=== PATIENT | female | born 1980 | race Two or more races ===

== ENCOUNTER 2024-03-13 15:37 | Inpatient (IN) | payer OTHER ==
[~2024-03-13] VITALS: Ht 157.5 cm; Wt 67.6 kg
[2024-03-13] MEDS ORDERED: ONDANSETRON HCL/PF 4 MG/2 ML VIAL ONE (15:49)
[2024-03-13] MEDS: ONDANSETRON HCL/PF 4 MG/2 ML VIAL IVP ONE (16:00)
[2024-03-13] MEDS: IV NS 0.9% 1,000 ML BAG IV ONE (16:00)
[2024-03-13] MEDS: PANTOPRAZOLE 80 MG in IV NS 0.9% 500 ML IV ONE (16:10)
[2024-03-13 16:28] LABS: BASOPHILS # (AUTO) 0.1 K/uL (0.0-0.2); BASOPHILS % (AUTO) 0.9 % (0.0-2.0); EOSINOPHILS # (AUTO) 0.1 K/uL (0.0-0.7); EOSINOPHILS % (AUTO) 1.6 % (0.0-6.0); LYMPHOCYTES # (AUTO) 1.5 K/uL (0.8-4.8); LYMPHOCYTES % (AUTO) 19.3 % (20.0-44.0); MEAN CORPUSCULAR HEMOGLOBIN 24 PG (26.0-33.0); MEAN CORPUSCULAR HGB CONC 29 g/dl (31.0-36.0); MEAN CORPUSCULAR VOLUME 84 fL (82-100); MONOCYTES # (AUTO) 0.6 K/uL (0.1-1.30); MONOCYTES % (AUTO) 7.1 % (2.0-12.0); NEUTROPHILS # (AUTO) 5.6 K/uL (1.8-8.9); NEUTROPHILS % (AUTO) 71.1 % (43.0-81.0); PLATELET COUNT (AUTO) 606 K/uL (150-450); RED CELL DISTRIBUTION WIDTH 19.5 % (11.5-15.0); WHITE BLOOD COUNT (AUTO) 7.9 K/uL (4.3-11.0)
[2024-03-13 16:30] LABS: RED BLOOD CELL COUNT(AUTO) 1.86 MIL/uL (4.0-5.2)
[2024-03-13 16:31] LABS: HEMOGLOBIN 4.4 g/dL (11.5-14.8)
[2024-03-13 16:32] LABS: HEMATOCRIT 16 % (33-45)
[2024-03-13 16:39] LABS: INR 0.97 (0.91-1.10); PROTHROMBIN TIME 10.3 SECS (9.2-11.1)
[2024-03-13 16:47] LABS: CALCIUM, SERUM 7.9 mg/dL (8.5-10.1); CARBON DIOXIDE 27 mmol/L (21-32); CHLORIDE 106 mmol/L (98-107); CREATININE 0.7 mg/dL (0.6-1.3); GLUCOSE 137 mg/dL (74-106); POTASSIUM 3.7 mmol/L (3.5-5.1); SODIUM SERUM 140 mmol/L (136-145); UREA NITROGEN, BLOOD 10 mg/dL (7-18)
[2024-03-13 16:54] LABS: LACTIC ACID 2.5 mmol/L (0.4-2.0)
[2024-03-13 16:58] LABS: ALANINE AMINOTRANSFERASE 43 U/L (12-78); ALBUMIN 2.1 g/dL (3.4-5.0); ALKALINE PHOSPHATASE 96 U/L (46-116); ASPARTATE AMINOTRANSFERASE 38 U/L (15-37); BILIRUBIN,DIRECT 0.1 mg/dL (0.0-0.2); BILIRUBIN,TOTAL 0.2 mg/dL (0.2-1.0); LIPASE 39 U/L (16-77); TOTAL PROTEIN, SERUM 6.1 g/dL (6.4-8.2)
[2024-03-13] MEDS: PIPERACILLIN /TAZOBACTAM 3.375 G in IV D5W 50 ML IV ONE (17:30)
[2024-03-13] MEDS ORDERED: PIPERACI/TAZO 3.375GM/D5W 50ML PB IV ONE (17:30)
[2024-03-13 17:32] LABS: BASOPHILS % (MANUAL) 0 % (0.0-2.0); EOSINOPHILS % (MANUAL) 0 % (0-4); LYMPHOCYTES % (MANUAL) 20 % (16-48); MONOCYTES % (MANUAL) 4 % (0-11.0); NEUTROPHILS % (MANUAL) 76 (42-76); PLATELET ESTIMATE INCREASED
[2024-03-13 17:33] LABS: ANISOCYTOSIS 2+; HYPOCHROMASIA 2+
[2024-03-13] MEDS ORDERED: FERR-68 PO (18:01)
[2024-03-13] MEDS ORDERED: MEDR10TA10 PO (18:01)
[2024-03-13] MEDS ORDERED: IOHEXOL-350 100 ML VIAL IV ONE (18:23)
[2024-03-13] MEDS ORDERED: CT SWABBABLE VALVE TRANS SET 1 EA INFUS.SET MC ONE (18:23)
[2024-03-13] MEDS ORDERED: ONDANSETRON HCL/PF 4 MG/2 ML VIAL IVP PRN (21:00)
[2024-03-13] MEDS ORDERED: Z GUARD REMEDY 4 OZ OINT TP PRN (21:00)
[2024-03-13 21:30] VITALS: BP 103/78; O2SAT 100
[2024-03-13] MEDS: IV NS 0.9% 1,000 ML IV PRN (21:43)
[2024-03-13 22:00] VITALS: BP 104/65; O2SAT 100
[2024-03-13] MEDS: PANTOPRAZOLE 80 MG in IV NS 0.9% 500 ML IV PRN (22:27)
[2024-03-13] MEDS: CEFTRIAXONE 1GM BAG (ER ONLY) 50 ML IV ONE (22:29)
[2024-03-13] MEDS ORDERED: NOREPINEPHRINE 8 MG in IV D5W 242 ML IV PRN ×2 (22:30→23:30)
[2024-03-13] MEDS: CEFTRIAXONE 1 G in IV D5W 50 ML IV SCH (22:33)
[2024-03-13 23:00] VITALS: BP 103/54; O2SAT 100
[2024-03-13 23:31] LABS: HEMOGLOBIN 3.9 g/dL (11.5-14.8)
[2024-03-14] VITALS (25 sets, daily range): BP systolic 91–123; BP diastolic 52–78; TEMP 97.6–99.3; O2SAT 95–100
[2024-03-14] MEDS: PANTOPRAZOLE 40 MG VIAL ONE (01:47)
[2024-03-14 05:28] LABS: ALBUMIN 1.7 g/dL (3.4-5.0); CALCIUM, SERUM 7.5 mg/dL (8.5-10.1); CREATININE 0.6 mg/dL (0.6-1.3); MAGNESIUM 2.1 mg/dL (1.8-2.4); PHOSPHORUS 3.5 mg/dL (2.5-4.9); POTASSIUM 3.8 mmol/L (3.5-5.1)
[2024-03-14 06:50] LABS: BASOPHILS % (AUTO) 0.6 % (0.0-2.0); EOSINOPHILS # (AUTO) 0.1 K/uL (0.0-0.7); EOSINOPHILS % (AUTO) 1.1 % (0.0-6.0); LYMPHOCYTES # (AUTO) 0.8 K/uL (0.8-4.8); LYMPHOCYTES % (AUTO) 14.6 % (20.0-44.0); MEAN CORPUSCULAR HEMOGLOBIN 26 PG (26.0-33.0); MEAN CORPUSCULAR HGB CONC 30 g/dl (31.0-36.0); MEAN CORPUSCULAR VOLUME 86 fL (82-100); MONOCYTES # (AUTO) 0.3 K/uL (0.1-1.30); MONOCYTES % (AUTO) 6.8 % (2.0-12.0); NEUTROPHILS % (AUTO) 76.9 % (43.0-81.0); PLATELET COUNT (AUTO) 438 K/uL (150-450); RED CELL DISTRIBUTION WIDTH 19.6 % (11.5-15.0); WHITE BLOOD COUNT (AUTO) 5.2 K/uL (4.3-11.0)
[2024-03-14 07:36] LABS: RED BLOOD CELL COUNT(AUTO) 1.39 MIL/uL (4.0-5.2)
[2024-03-14 07:38] LABS: HEMATOCRIT 12 % (33-45); HEMOGLOBIN 3.6 g/dL (11.5-14.8)
[2024-03-14] MEDS ORDERED: PANTOPRAZOLE 80 MG in IV NS 0.9% 500 ML IV SCH ×2 (07:59→08:00)
[2024-03-14 09:22] LABS: APPEARANCE,URINE SLIGHTLY CLOUDY (CLEAR); BILIRUBIN,URINE NEGATIVE (NEGATIVE); BLOOD, URINE 3+ Ery/uL (NEGATIVE); COLOR,URINE OTHER (YELLOW); KETONES,URINE NEGATIVE (NEGATIVE); LEUKOCYTE ESTERASE ,URINE TRACE (NEGATIVE); NITRITE, URINE NEGATIVE (NEGATIVE); PROTEIN,URINE 1+ mg/dl (NEGATIVE); UGLUCOSE NEGATIVE (NEGATIVE); UROBILINOGEN,URINE 0.2 EU/dL (0.2)
[2024-03-14 09:40] LABS: ADD URINE CULTURE YES; BACTERIA,URINE Few /HPF (None Seen); MUCUS,URINE Few /LPF (None Seen); RBC,URINE 21-50 /HPF (0-2)
[2024-03-14 10:08] LABS: EOSINOPHILS % (MANUAL) 3 % (0-4); LYMPHOCYTES % (MANUAL) 19 % (16-48); MONOCYTES % (MANUAL) 1 % (0-11.0); NEUTROPHILS % (MANUAL) 77 (42-76); PLATELET ESTIMATE ADEQUATE
[2024-03-14 10:14] LABS: ANISOCYTOSIS 1+; HYPOCHROMASIA 2+
[2024-03-14 10:15] LABS: STOMATOCYTES 1+
[2024-03-14] MEDS: PANTOPRAZOLE 80 MG in IV NS 0.9% 500 ML IV SCH (12:13)
[2024-03-14] MEDS: SOD FERRIC GLUC 125 MG in IV NS 0.9% 100 ML IV SCH (14:38)
[2024-03-14] MEDS: ACETAMINOPHEN 650 MG/SUPP.RECT RC PRN (19:36)
[2024-03-14] MEDS ORDERED: KETOROLAC TROMETHAMINE 15 MG/ML VIAL IV PRN (21:00)
[2024-03-14] MEDS ORDERED: KETOROLAC TROMETHAMINE 15 MG/ML VIAL ONE (21:17)
[2024-03-14] MEDS: KETOROLAC TROMETHAMINE 15 MG/ML VIAL IV PRN (21:19)
[2024-03-15] VITALS (26 sets, daily range): BP systolic 91–121; BP diastolic 55–78; TEMP 98–98.9; O2SAT 88–100
[2024-03-15] MEDS ORDERED: KETOROLAC TROMETHAMINE INJ 30 MG/ML VIAL IV PRN (08:30)
[2024-03-16] VITALS (22 sets, daily range): BP systolic 94–142; BP diastolic 54–93; TEMP 98–98.6; O2SAT 97–100
[2024-03-16] MEDS: PANTOPRAZOLE 40 MG TABLET.DR PO SCH (08:53)
[2024-03-17] VITALS: BP 108/70; TEMP 98.4; O2SAT 100
[2024-03-17 04:00] VITALS: BP 105/66; TEMP 98.6; O2SAT 100
[2024-03-17 08:00] VITALS: BP 103/63; TEMP 98; O2SAT 100
[2024-03-17 12:00] VITALS: BP 129/80; TEMP 98; O2SAT 99
[2024-03-17 16:00] VITALS: BP 114/84; TEMP 99.3; O2SAT 100
[2024-03-17 20:00] VITALS: BP 119/83; TEMP 99.8; O2SAT 100
[2024-03-17] MEDS: ACETAMINOPHEN 325 MG TABLET PO PRN (20:35)
[2024-03-18] VITALS: BP 110/73; TEMP 99.7; O2SAT 100
[2024-03-18 04:00] VITALS: BP 110/73; TEMP 98.8; O2SAT 98
[2024-03-18 09:07] LABS: BASOPHILS # (AUTO) 0.1 K/uL (0.0-0.2); BASOPHILS % (AUTO) 0.9 % (0.0-2.0); EOSINOPHILS # (AUTO) 0.1 K/uL (0.0-0.7); EOSINOPHILS % (AUTO) 1.4 % (0.0-6.0); LYMPHOCYTES # (AUTO) 0.7 K/uL (0.8-4.8); LYMPHOCYTES % (AUTO) 10.2 % (20.0-44.0); MEAN CORPUSCULAR HEMOGLOBIN 23 PG (26.0-33.0); MEAN CORPUSCULAR HGB CONC 28 g/dl (31.0-36.0); MEAN CORPUSCULAR VOLUME 82 fL (82-100); MONOCYTES # (AUTO) 0.5 K/uL (0.1-1.30); MONOCYTES % (AUTO) 7.3 % (2.0-12.0); NEUTROPHILS # (AUTO) 5.5 K/uL (1.8-8.9); NEUTROPHILS % (AUTO) 80.2 % (43.0-81.0); PLATELET COUNT (AUTO) 590 K/uL (150-450); RED BLOOD CELL COUNT(AUTO) 2.11 MIL/uL (4.0-5.2); WHITE BLOOD COUNT (AUTO) 6.9 K/uL (4.3-11.0)
[2024-03-18 09:09] LABS: HEMATOCRIT 17 % (33-45); HEMOGLOBIN 4.9 g/dL (11.5-14.8)
[2024-03-18 10:00] VITALS: BP 100/66; TEMP 98; O2SAT 100
[2024-03-18 12:00] VITALS: BP 110/63; TEMP 98.3; O2SAT 100
[2024-03-18 12:08] LABS: ANISOCYTOSIS 3+; HYPOCHROMASIA 1+; OVALOCYTES 1+
[2024-03-18 16:00] VITALS: BP 116/61; TEMP 98.4; O2SAT 100
[2024-03-18 21:29] VITALS: BP 118/71; TEMP 100.2; O2SAT 100
[2024-03-19 04:00] VITALS: BP 112/67; TEMP 98.2; O2SAT 100
[2024-03-19 08:00] VITALS: BP 110/69; TEMP 99.4; O2SAT 99
[2024-03-19 16:00] VITALS: BP 110/71; TEMP 99; O2SAT 99
[2024-03-19] MEDS: medroxyPROGESTERone ACET 5 MG TABLET PO SCH (16:08)
[2024-03-19 20:00] VITALS: BP 110/71; TEMP 98.2; O2SAT 100
[2024-03-20 04:00] VITALS: BP 97/53; TEMP 98.5; O2SAT 98
[2024-03-20 08:00] VITALS: BP 105/70; TEMP 98.5; O2SAT 98
[2024-03-20 16:00] VITALS: BP 108/70; TEMP 98.1; O2SAT 98
[2024-03-20 20:00] VITALS: BP 119/71; TEMP 98.4; O2SAT 98
[2024-03-21 04:40] VITALS: BP 103/62; TEMP 98.4; O2SAT 100
[2024-03-21 06:20] LABS: HEMOGLOBIN 5.9 g/dL (11.5-14.8)
[2024-03-21 08:00] VITALS: BP 115/64; TEMP 98.3; O2SAT 98
[2024-03-21] MEDS ORDERED: EPOETIN ALFA (10,000 UNIT) 10,000 UNIT/ML VIAL IV SCH (13:30)
[2024-03-21] MEDS: FOLIC ACID 1 MG TABLET PO SCH (15:55)
[2024-03-21] MEDS: EPOETIN ALFA (10,000 UNIT) 10,000 UNIT/ML VIAL IV SCH (15:57)
[2024-03-21 16:00] VITALS: BP 118/82; TEMP 99; O2SAT 98
[2024-03-21 20:00] VITALS: BP 110/70; TEMP 100; O2SAT 99
[2024-03-21] MEDS: ACETAMINOPHEN 325 MG TABLET PO PRN (23:06)
[2024-03-22 04:00] VITALS: BP 94/62; TEMP 98.2; O2SAT 98
[2024-03-22 06:49] LABS: OCCULT BLOOD STOOL POSITIVE (NEGATIVE)
[2024-03-22 07:06] LABS: BASOPHILS # (AUTO) 0.1 K/uL (0.0-0.2); BASOPHILS % (AUTO) 0.9 % (0.0-2.0); EOSINOPHILS # (AUTO) 0.2 K/uL (0.0-0.7); EOSINOPHILS % (AUTO) 2.4 % (0.0-6.0); HEMATOCRIT 21 % (33-45); LYMPHOCYTES # (AUTO) 1.1 K/uL (0.8-4.8); LYMPHOCYTES % (AUTO) 12.3 % (20.0-44.0); MEAN CORPUSCULAR HEMOGLOBIN 23 PG (26.0-33.0); MEAN CORPUSCULAR HGB CONC 28 g/dl (31.0-36.0); MEAN CORPUSCULAR VOLUME 83 fL (82-100); MONOCYTES # (AUTO) 0.6 K/uL (0.1-1.30); MONOCYTES % (AUTO) 7.6 % (2.0-12.0); NEUTROPHILS # (AUTO) 6.6 K/uL (1.8-8.9); NEUTROPHILS % (AUTO) 76.8 % (43.0-81.0); PLATELET COUNT (AUTO) 509 K/uL (150-450); RED BLOOD CELL COUNT(AUTO) 2.53 MIL/uL (4.0-5.2); RED CELL DISTRIBUTION WIDTH 21.1 % (11.5-15.0); WHITE BLOOD COUNT (AUTO) 8.5 K/uL (4.3-11.0)
[2024-03-22 07:18] LABS: IRON, SERUM 17 ug/dl (50-175); TOTAL IRON BINDING CAPACITY 336 ug/dl (250-450)
[2024-03-22 07:31] LABS: FERRITIN 174 ng/mL (8-388)
[2024-03-22 07:36] LABS: HEMOGLOBIN 5.9 g/dL (11.5-14.8)
[2024-03-22 08:00] VITALS: BP 107/77; TEMP 98; O2SAT 98
[2024-03-22 12:16] LABS: ANISOCYTOSIS 1+; BASOPHILS % (MANUAL) 0 % (0.0-2.0); EOSINOPHILS % (MANUAL) 2 % (0-4); HYPOCHROMASIA 1+; LYMPHOCYTES % (MANUAL) 11 % (16-48); MONOCYTES % (MANUAL) 8 % (0-11.0); NEUTROPHILS % (MANUAL) 79 (42-76); OVALOCYTES 1+; PLATELET ESTIMATE ADEQUATE
[2024-03-22] MEDS ORDERED: GADOTERATE MEGLUMINE 10 MMOL/20 ML VIAL IV ONE (13:28)
[2024-03-22] MEDS ORDERED: SOD FERRIC GLUC 125 MG in IV NS 0.9% 100 ML IV SCH ×3 (14:00)
[2024-03-22 16:00] VITALS: BP 114/83; TEMP 97.6; O2SAT 98
[2024-03-22] MEDS: SOD FERRIC GLUC 125 MG in IV NS 0.9% 100 ML IV SCH (20:23)
[2024-03-22 21:04] VITALS: BP 104/73; TEMP 102.4; O2SAT 98
[2024-03-22] MEDS: ACETAMINOPHEN 325 MG TABLET PO PRN (21:49)
[2024-03-23 00:20] VITALS: TEMP 98.4
[2024-03-23 05:06] LABS: FOLIC ACID 4.3 ng/mL (>3.0)
[2024-03-23 05:23] VITALS: BP 93/68; TEMP 98.8; O2SAT 96
[2024-03-23 06:51] LABS: CALCIUM, SERUM 9.1 mg/dL (8.5-10.1); CREATININE 0.7 mg/dL (0.6-1.3); POTASSIUM 3.8 mmol/L (3.5-5.1)
[2024-03-23 07:11] LABS: IMMUNOGLOBULIN A, SERUM 331 mg/dL (87-352); IMMUNOGLOBULIN G, SERUM 1026 mg/dL (586-1602); IMMUNOGLOBULIN M, SERUM 217 mg/dL (26-217)
[2024-03-23 07:15] LABS: BASOPHILS % (AUTO) 0.5 % (0.0-2.0); EOSINOPHILS # (AUTO) 0.1 K/uL (0.0-0.7); EOSINOPHILS % (AUTO) 0.7 % (0.0-6.0); HEMATOCRIT 21 % (33-45); LYMPHOCYTES # (AUTO) 0.6 K/uL (0.8-4.8); LYMPHOCYTES % (AUTO) 7.9 % (20.0-44.0); MEAN CORPUSCULAR HEMOGLOBIN 23 PG (26.0-33.0); MEAN CORPUSCULAR HGB CONC 29 g/dl (31.0-36.0); MEAN CORPUSCULAR VOLUME 81 fL (82-100); MONOCYTES # (AUTO) 0.5 K/uL (0.1-1.30); NEUTROPHILS # (AUTO) 6.6 K/uL (1.8-8.9); NEUTROPHILS % (AUTO) 84.9 % (43.0-81.0); PLATELET COUNT (AUTO) 470 K/uL (150-450); RED BLOOD CELL COUNT(AUTO) 2.62 MIL/uL (4.0-5.2); RED CELL DISTRIBUTION WIDTH 20.3 % (11.5-15.0); WHITE BLOOD COUNT (AUTO) 7.7 K/uL (4.3-11.0)
[2024-03-23 07:42] LABS: HEMOGLOBIN 6.1 g/dL (11.5-14.8)
[2024-03-23 08:00] VITALS: BP 107/67; TEMP 99.7; O2SAT 96
[2024-03-23 10:10] LABS: FREE KAPPA LT CHAINS SERUM 37.3 mg/L (3.3-19.4); FREE LAMBDA LT CHAIN SERUM 34.7 mg/L (5.7-26.3); KAPPA/LAMBDA RATIO SERUM 1.07 (0.26-1.65)
[2024-03-23 12:19] LABS: BASOPHILS % (MANUAL) 0 % (0.0-2.0); EOSINOPHILS % (MANUAL) 0 % (0-4); LYMPHOCYTES % (MANUAL) 9 % (16-48); MONOCYTES % (MANUAL) 4 % (0-11.0); NEUTROPHILS % (MANUAL) 87 (42-76); PLATELET ESTIMATE ADEQUATE
[2024-03-23 12:20] LABS: ANISOCYTOSIS 1+; HYPOCHROMASIA 1+; OVALOCYTES FEW; TARGET CELLS FEW
[2024-03-26 07:06] LABS: *SPE A/G RATIO 0.7 (0.7-1.7); *SPE ALBUMIN 2.6 g/dL (2.9-4.4); *SPE ALPHA-1-GLOBULIN 0.4 g/dL (0.0-0.4); *SPE ALPHA-2-GLOBULIN 1.1 g/dL (0.4-1.0); *SPE BETA GLOBULIN 1.3 g/dL (0.7-1.3); *SPE M-SPIKE Not Observed g/dL (Not Observed); *SPE PROTEIN TOTAL 6.6 g/dL (6.0-8.5); *SPEGAMMA GLOBULIN 1.2 g/dL (0.4-1.8)
== END 2024-03-23 17:28 | disposition short-term general hospital (02) | DRG 253 ==
LOC: ER 15:41 → ICU 20:21 → TELE1 03-16 15:08 → MEDSG1 03-18 09:55
PROVIDERS: ADMIT Nurse Practitioner Family; ATTEND Nurse Practitioner Acute Care
DX: K92.2 Gastrointestinal hemorrhage, unspecified (principal); E87.20 Acidosis, unspecified; I95.89 Other hypotension; J15.9 Unspecified bacterial pneumonia; E88.09 Other disorders of plasma-protein metabolism, not elsewhere classified; D62 Acute posthemorrhagic anemia; D75.839 Thrombocytosis, unspecified; D25.9 Leiomyoma of uterus, unspecified; Z20.822 Contact with and (suspected) exposure to COVID-19; F40.240 Claustrophobia; E66.9 Obesity, unspecified; Z68.27 Body mass index [BMI] 27.0-27.9, adult; N92.4 Excessive bleeding in the premenopausal period; Z53.29 Procedure and treatment not carried out because of patient's decision for other reasons; Z71.3 Dietary counseling and surveillance
CPT/HCPCS: 36415; 71045-TC; 72197-TC; 76856-TC; 80048-TC; 80076-TC; 81001; 82040-TC; 82272-TC; 82378; 82607-TC; 82728-TC; 82784; 83540-TC; 83605-TC; 83690-TC; 83735-TC; 84100-TC; 84155; 84165; 84484-TC; 84702-TC; 85025-TC; 85027-TC; 85045-TC; 85730-TC; 86304; 86334; 86850-TC; 87040-TC; 87081-TC; 87086-TC; 93307-TC; 93880-TC; 97116-TC; 97530-TC; A4223; A9575; G0378; J0696; J0885; J1885; J2405; J2470; J2543; J2916; J7030; J7040; J7050; J7060; Q9967